=== PATIENT | female | born 2000 | race Caucasian/White ===

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

== ENCOUNTER 2022-01-24 18:43 | Emergency (ER) | payer MEDICAID ==
[~2022-01-24] VITALS: Ht 157.5 cm; Wt 104.4 kg
[2022-01-24 18:51] VITALS: BP 144/98
--- NOTE | 2022-01-24 18:59 | NUR ---
PT AMB TO BED 3.
--- NOTE | 2022-01-24 19:29 | NUR ---
Patient being evaluated by physician at bedside.
[2022-01-24] MEDS ORDERED: NACL 0.9% 1,000 ML IV ONE (19:35)
[2022-01-24] MEDS ORDERED: CIPR500T4 PO (19:50)
[2022-01-24] MEDS ORDERED: IBUP-2213 PO (19:50)
[2022-01-24 22:46] VITALS: BP 135/90
--- NOTE | 2022-01-24 22:47 | NUR ---
Patient discharged with v/s stable. Written and verbal after care instructions given and explained. Patient alert, oriented and verbalized understanding of instructions. Ambulatory with steady gait. All questions addressed prior to discharge. ID band removed. Patient advised to follow up with PMD. Rx of CIPRO AND IBUPROFEN given. Patient educated on indication of medication including possible reaction and side effects. Opportunity to ask questions provided and answered. VSS, A/OX4, UNLABORED BREATHING, AMBULATORY, AND CALM DEMEANOR.
[2022-01-30] MEDS ORDERED: IBUP-2213 PO (10:21)
[2022-01-30] MEDS ORDERED: CIPR500T4 PO (10:21)
== END 2022-01-24 22:47 | disposition home or self-care (01) ==
LOC: MED 18:43
DX: R42 Dizziness and giddiness (principal); N39.0 Urinary tract infection, site not specified
CPT/HCPCS: 81002; 81025; 96360; 99283; J7030

== ENCOUNTER 2022-09-29 21:43 | Emergency (ER) | payer MEDICAID ==
[~2022-09-29] VITALS: Ht 160 cm; Wt 103.4 kg
[~2022-09-29 21:43] MED LIST: CIPR500T4 PO; IBUP-2213 PO
[2022-09-29 22:04] VITALS: BP 136/92
[2022-09-29] MEDS ORDERED: LORazepam 2 MG/ML VIAL IM ONE (23:40)
[2022-09-30 00:03] VITALS: BP 136/92
== END 2022-09-30 00:03 | disposition home or self-care (01) ==
LOC: MED 21:43
DX: R00.2 Palpitations (principal); F41.9 Anxiety disorder, unspecified; R07.9 Chest pain, unspecified
CPT/HCPCS: 96372; 99283; J2060

== ENCOUNTER 2022-10-21 18:44 | Emergency (ER) | payer MEDICAID ==
[~2022-10-21] VITALS: Ht 160 cm; Wt 97.2 kg
[2022-10-21 18:58] VITALS: BP 152/90
--- NOTE | 2022-10-21 19:23 | NUR ---
REPORT FR MACO ZEPEDA
[2022-10-21] MEDS ORDERED: IBUP-2213 PO (19:44)
--- NOTE | 2022-10-21 20:19 | NUR ---
Pt seen and evaluated by ERMD.
[2022-10-21 20:20] VITALS: BP 152/90
--- NOTE | 2022-10-21 20:20 | NUR ---
Patient discharged with v/s stable. Written and verbal after care instructions given and explained. New rx ibuprofen. Patient verbalized understanding. Ambulatory with steady gait. Accompanied by father. All questions addressed prior to discharge. Advised to follow up with PMD.
== END 2022-10-21 20:20 | disposition home or self-care (01) ==
LOC: MED 18:44
DX: R07.89 Other chest pain (principal); R42 Dizziness and giddiness; Z79.899 Other long term (current) drug therapy
CPT/HCPCS: 93005; 99283

== ENCOUNTER 2022-11-14 11:43 | Emergency (ER) | payer MEDICAID ==
[~2022-11-14] VITALS: Ht 160 cm; Wt 99.8 kg
[2022-11-14 11:50] VITALS: BP 121/84
[2022-11-14] MEDS ORDERED: KETOROLAC 30 MG/ML VIAL IM ONE (13:15)
[2022-11-14] MEDS ORDERED: CYCL-711 PO (13:18)
[2022-11-14] MEDS ORDERED: ACET-9496 PO (13:18)
--- NOTE | 2022-11-14 13:43 | NUR ---
Patient discharged with v/s stable. Written and verbal after care instructions given and explained. Patient alert, oriented and verbalized understanding of instructions. Ambulatory with to home. All questions addressed prior to discharge. ID band removed. Patient advised to follow up with PMD. Rx of EXEDRINE, FLEXIRIL given. Patient educated on indication of medication including possible reaction and side effects. Opportunity to ask questions provided and answered.
== END 2022-11-14 13:40 | disposition home or self-care (01) ==
LOC: MED 11:43
DX: G44.209 Tension-type headache, unspecified, not intractable (principal); F41.9 Anxiety disorder, unspecified; Z79.899 Other long term (current) drug therapy
CPT/HCPCS: 81025; 96372; 99283; J1885